=== PATIENT | male | born 1965 | race American Indian/Alaskan Native ===

== ENCOUNTER 2019-07-24 10:27 | Emergency (ER) | payer SELFPAY ==
[2019-07-24 10:48] VITALS: BP 158/93
--- NOTE | 2019-07-24 11:14 | XRay Report ---
LEFT ANKLE 2 VIEWS. INDICATION / CLINICAL INFORMATION: pain and swelling after injury COMPARISON: None available. FINDINGS: BONES / JOINT(S): Spiral fracture involving the lateral malleolus with widening of the ankle mortise anteriorly and laterally. Changes of previous injury at the medial malleolus. 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 SOFT TISSUES: Diffuse soft tissue swelling. Vascular calcification. ADDITIONAL FINDINGS: None. Signer Name: Bertram Sanchez MD Signed: 07/24/2019 11:10 AM Workstation Name: [id number]
[2019-07-24] MEDS ORDERED: HYDROcodone/ACETAMINOPHEN 5-325 MG TAB PO ONE (13:00)
[2019-07-24] MEDS ORDERED: predniSONE 20 MG TAB PO ONE (13:00)
--- NOTE | 2019-07-24 13:40 | Emergency Department Report ---
ED Lower Extremity HPI - General Chief Complaint: Extremity Injury, Lower Stated Complaint: FOOT PAIN Time Seen by Provider: 07/24/19 12:07 Source: patient Mode of arrival: Ambulatory Limitations: No Limitations - History of Present Illness Initial Comments: This is a 53-year-old male presents the ED complaining of left ankle swelling and pain that initially started 3 days ago. Patient states he was walking and accidentally twisted his left ankle 3 days ago. Patient states that swelling worsened in the past 2 days. He also admits pain to the lateral aspect of the ankle. Patient states he has been icing and heating the ankle daily. Patient also states he been taking Tylenol with codeine and other pain medication with no relief. Patient denies any fall or trauma, leg pain, shortness of breath, chest pain MD Complaint: ankle injury -: days(s) (3) - Related Data Previous Rx's Medication Instructions Recorded Last Taken Type HYDROcodone/APAP 5-325 [[place] 1 each PO Q6H #10 tablet 07/24/19 Unknown Rx 5-325 mg TAB] Ibuprofen [Motrin] 800 mg PO Q8HR #30 tablet 07/24/19 Unknown Rx Allergies Allergy/AdvReac Type Severity Reaction Status Date / Time No Known Allergies Allergy Verified 07/24/19 10:43 ED Review of Systems ROS: Stated complaint: FOOT PAIN Other details as noted in HPI Comment: All other systems reviewed and negative ED Past Medical Hx - Past Medical History Previous Medical History?: No - Surgical History Past Surgical History?: No - Social History Smoking Status: Never Smoker Substance Use Type: None - Medications Home Medications: Home Medications Medication Instructions Recorded Confirmed Last Taken Type HYDROcodone/APAP 5-325 [[place] 1 each PO Q6H #10 tablet 07/24/19 Unknown Rx 5-325 mg TAB] Ibuprofen [Motrin] 800 mg PO Q8HR #30 tablet 07/24/19 Unknown Rx ED Physical Exam - General Limitations: No Limitations General appearance: alert, in no apparent distress - Head Head exam: Present: atraumatic, normocephalic - Eye Eye exam: Present: normal appearance - ENT ENT exam: Present: mucous membranes moist - Neck Neck exam: Present: normal inspection - Respiratory Respiratory exam: Present: normal lung sounds bilaterally. Absent: respiratory distress - Cardiovascular Cardiovascular Exam: Present: regular rate, normal rhythm. Absent: systolic murmur, diastolic murmur, rubs, gallop - GI/Abdominal GI/Abdominal exam: Present: soft, normal bowel sounds - Rectal Rectal exam: Present: deferred - Extremities Exam Extremities exam: Present: normal inspection, full ROM (Of the left foot. Patient able to flex and extend foot without any problems.), tenderness (To palpation of the left ankle), normal capillary refill, joint swelling (To the left ankle joint). Absent: calf tenderness - Back Exam Back exam: Present: normal inspection, full ROM - Neurological Exam Neurological exam: Present: alert, oriented X3 - Psychiatric Psychiatric exam: Present: normal affect, normal mood - Skin Skin exam: Present: warm, dry, intact, normal color. Absent: rash ED Course Vital Signs 07/24/19 10:45 Temperature 98.6 F Pulse Rate 61 Respiratory 18 Rate Blood Pressure 158/93 O2 Sat by Pulse 100 Oximetry ED Lower Extremity MDM - Radiology Data Radiology results: report reviewed, image reviewed Findings: Bones and joints: Spiral fracture involving the lateral malleolus of the widening of the ankle mortise anteriorly and laterally. Changes of the previous injury at medial malleolus Mild DJD of the ankle Soft tissue: Diffuse soft tissue swelling, vascular calcification - Medical Decision Making 53-year-old male presents with left ankle fracture ED course: Pt received [place] tablets in the ED Right hand x-ray ordered. Right hand x-ray shows: Malleolus fracture Discussed findings with patient. Discussed application of right ulnar gutter splint to be placed. Post-splint evaluation: Capillary refill 2 seconds, patient able to wiggle fingers, neurovascularly intact no loss of sensation. Discussed the patient and orthopedic follow-up in 2-3 days. Referrals given. From follow-up from care physician. Vital signs are normal patient is in no acute or respiratory distress. Patient states understanding all discussed complaint of follow-up. Critical care attestation.: If time is entered above; I have spent that time in minutes in the direct care of this critically ill patient, excluding procedure time. ED Disposition Clinical Impression: Fracture of malleolus of left ankle Disposition: - TO HOME OR SELFCARE Is pt being admited?: No Does the pt Need Aspirin: No Condition: Stable Instructions: Ankle Fracture (ED) Additional Instructions: Make sure to follow up with the primary care physician as discussed. Take all your medications as you've been prescribed. If you have any worsening symptoms or develop new symptoms please return to ED immediately. Prescriptions: Ibuprofen [Motrin] 800 mg PO Q8HR #30 tablet HYDROcodone/APAP 5-325 [[place] 5-325 mg TAB] 1 each PO Q6H #10 tablet Referrals: PRIMARY CARE, [Primary Care Provider] - 3-5 Days [facility] [Provider Group] - 3-5 Days [facility] [Provider Group] - 3-5 Days Forms: Work/School Release Form, Accompanied Note Time of Disposition: 13:43
== END 2019-07-24 14:19 | disposition home or self-care (01) ==
LOC: ED 10:27
DX: S82.892A Other fracture of left lower leg, initial encounter for closed fracture (principal); X58.XXXA Exposure to other specified factors, initial encounter; Y93.89 Activity, other specified; Y92.89 Other specified places as the place of occurrence of the external cause; Y99.8 Other external cause status
CPT/HCPCS: 29515; 73600; 99283; J7512